=== PATIENT | female | born 1945 | race Caucasian/White ===

== ENCOUNTER → 2017-02-06 | Day surgery (SDC) | payer MEDICARE ==
[~2017-02-06] MED LIST: ACETAMINOPHEN 1000 MG/100 ML VIAL IV ONE; ACETAMINOPHEN/HYDROcodone 325 MG/5 MG TAB ONE; ALEN70; ALPR0.5T99; ATEN1TAB75; BUPIVACAINE/EPINEPHRINE 0.5% 50 ML VIAL ONE; GEMF600; HYDR50TA5; KETOROLAC TROMETHAMINE 30 MG/ML (IVP) VIAL IV PUSH ONE; KLOR8TAB; LACTATED RINGER'S 1000 ML INJ 1,000 ML ONE; MIDAZOLAM HCL 2 MG/2 ML VIAL ONE; ONDANSETRON HCL 4 MG/2 ML VIAL IV PUSH ONE; PROPOFOL 200 MG/20 ML AMP IV ONE; ceFAZolin INJ 1,000 MG VIAL ONE
--- NOTE | 2017-02-06 10:42 | TN ---
cc: JENNIFER FISH M.D., JOSE R. M.D. BIANCHI, JOSEPH D. M.D. DATE OF SURGERY 02/06/2017 PREOPERATIVE DIAGNOSIS Bilateral inguinal hernia right greater than left. POSTOPERATIVE DIAGNOSIS Bilateral inguinal hernia right greater than left. PROCEDURE Laparoscopic bilateral inguinal hernia right greater than left. ANESTHESIA General SURGEON Dr. Zamora INDICATIONS This is a pleasant 72 female who noted a right inguinal hernia on exam. She also had a left inguinal hernia. Plans were made for above. PROCEDURE The patient taken to the operating room and placed in the supine position. After anesthesia, her abdomen was prepped with Betadine and a time-out was done and she was given preoperative antibiotics. We made an incision just below the umbilicus, dissect down to the fascia. The preperitoneal space was then entered and the dissecting balloon is placed under videoscopic surveillance. We insufflate this up to 45 pumps and visualized the preperitoneal space and both hernias that were reduced. The dissecting balloon was then removed. The balloon trocar was then place and the preperitoneal space was insufflated to 11 mmHg. Two other working ports were placed in the midline one above the pubic tubercle, one in between the two previously placed ports in the midline. We then direct our attention to the left inguinal hernia. She has both an indirect and direct. The direct is smaller. We completely reduced this. The round ligament is stripped of the indirect sac as high as possible. The round ligament is left intact. We then place a piece of polypropylene mesh 3 x 6, securing to the pubic tubercle, Himanshu's ligament and the anterior abdominal wall avoiding the epigastric vessels and the cutaneous nerves out laterally. We then direct of the right side, a fairly sizable indirect sac is completely reduced. It is very adherent to the round ligaments which must be and cut to completely reduce this as I could not get a plane between the round ligament the hernia sac. After the indirect sac is completely reduced, a similar piece of mesh is then placed 3 x 6 and secured to the pubic tubercle and Himanshu's ligament and the anterior abdominal wall in the out laterally avoiding the cutaneous nerves. Hemostasis assured. We then placed 15 cc of Marcaine in the preperitoneal space. The CO2 was removed. Trocars were removed. The fascial layer at the umbilicus was closed with a 0 Vicryl and the skin is closed with a 4-0 Vicryl. Steri-Strips applied. Sterile bandage applied. The patient tolerated the procedure and had no immediate postop complications. MD CHELO Dale/KATLYN /10:19 AM /10:29 AM
== END | disposition home or self-care (01) ==
LOC: ESDC 07:45
PROVIDERS: ATTEND Surgery
DX: K40.20 Bilateral inguinal hernia, without obstruction or gangrene, not specified as recurrent (principal)
CPT/HCPCS: 00840; 49650; C1727; C1781; J0131; J0690; J1885; J2250; J2405; J3010; J7120